=== PATIENT | male | born 2000 | race Caucasian/White ===

== ENCOUNTER 2025-05-04 21:46 | Emergency (ER) | payer BC ==
[2025-05-04] MEDS: Lidocaine 1% 10 ML MDV INJECT ONE (22:58)
[2025-05-04] MEDS: Diphtheria,Pertussis(Acell),Tetanus Vaccine 0.5 ML Syringe IM ONE (22:59)
[2025-05-04] MEDS ORDERED: Acetaminophen 325 MG Tab PO ONE (23:18)
[2025-05-04] MEDS ORDERED: Ibuprofen 600 MG Tab PO ONE (23:18)
== END 2025-05-04 23:27 | disposition home or self-care (01) ==
LOC: MW.ED 21:46
DX: S61.214A Laceration without foreign body of right ring finger without damage to nail, initial encounter (principal); Z23 Encounter for immunization; W26.8XXA Contact with other sharp object(s), not elsewhere classified, initial encounter
CPT/HCPCS: 12001; 73140; 90471; 99283; J2003